=== PATIENT | female | born 1970 | race Caucasian/White ===

== ENCOUNTER 2022-02-21 10:00 | Outpatient (CLI) | payer OTHER, SELFPAY | END 2022-02-21 10:01 | disposition home or self-care (01) | PROVIDERS: Visit Provider Otolaryngology | DX: H93.11 Tinnitus, right ear (principal); H90.3 Sensorineural hearing loss, bilateral | CPT/HCPCS: 92557; 92567 ==

== ENCOUNTER 2025-03-27 12:56 | Outpatient (CLI) | payer OTHER, SELFPAY ==
--- NOTE | ~2025-03-27 | XR_ITS ---
XR cervical spine min 6V 03/27/2025 13:14 Indication: Left-sided neck pain for 6 months Procedure: 7 view cervical spine Comparison: No prior studies for comparison. Findings: Straightening of cervical lordosis. Disc narrowing and endplate degenerative changes are pr esent in C4-5, C5-6 and C6-7. No significant alteration of alignment with flexion/extension views. No prevertebral soft tissue swelling. Odontoid process is normal. Lateral masses normally aligned. Impression: 1: Moderate cervical spondylosis. Reviewed, dictated and finalized at location A. Impression: 1: Moderate cervical spondylosis.
== END 2025-03-27 12:57 | disposition home or self-care (01) ==
PROVIDERS: PCP Chiropractor; Visit Provider Chiropractor
DX: M47.812 Spondylosis without myelopathy or radiculopathy, cervical region (principal)
CPT/HCPCS: 72052